=== PATIENT | female | born 1990 | race Caucasian/White ===

== ENCOUNTER 2018-08-13 23:45 | Emergency (ER) | payer OTHER ==
[2018-08-13 23:56] VITALS: BP 110/66
[2018-08-14] MEDS ORDERED: HYDROcod/ACETAM 5/325 MG TABLET PO STA (00:12)
[2018-08-14] MEDS ORDERED: NITROFURANTOIN MACRO 100 MG CAPSULE PO STA (00:12)
[2018-08-14] MEDS ORDERED: PHENAZOPYRIDINE 100 MG TABLET PO STA (00:12)
--- NOTE | 2018-08-14 00:16 | ED Physician Documentation ---
PD HPI FEMALE - Stated complaint Stated Complaint: L SIDE PAIN - Chief complaint Chief Complaint: Abd Pain - History obtained from History obtained from: Patient, Family - History of Present Illness Timing - onset: Today Timing - duration: Days (1) Timing - details: Gradual onset Pain level max: 8 Pain level max: 8 Associated symptoms: Dysuria, Urinary frequency. No: Vaginal pain, Vaginal bleeding, Vaginal discharge [employer] History: G (3), P (2) Similar symptoms before: Diagnosis (UTI) Recently seen: Not recently seen Review of Systems Constitutional: denies: Fever, Chills GI: denies: Vomiting Skin: denies: Rash Musculoskeletal: denies: Neck pain, Back pain Neurologic: denies: Headache PD PAST MEDICAL HISTORY - Past Medical History Past Medical History: No - Past Surgical History Past Surgical History: No - Present Medications Home Medications: Ambulatory Orders Medication Instructions Recorded Confirmed #103/Iron Fumarate/FA 1 tab PO DAILY 08/13/18 08/13/18 [ Tablet] Nitrofurantoin Monohyd/M-Cryst 100 mg PO BID #10 capsule 08/14/18 [Macrobid 100 mg Capsule] Phenazopyridine HCl [Pyridium] 200 mg PO TID PRN #6 tablet 08/14/18 - Allergies Allergies/Adverse Reactions: Allergies Allergy/AdvReac Type Severity Reaction Status Date / Time No Known Drug Allergies Allergy Verified 08/13/18 23:56 - Social History Does the pt smoke?: No Smoking Status: Never smoker Does the pt drink ETOH?: No Does the pt have substance abuse?: No - Immunizations Immunizations are current?: Yes - POLST Patient has POLST: No PD ED PE NORMAL - Vitals Vital signs reviewed: Yes - General General: Alert and oriented X 3, No acute distress - HEENT HEENT: Moist mucous membranes - Neck Neck: Supple, no meningeal sign - Cardiac Cardiac: RRR - Respiratory Respiratory: No respiratory distress, Clear bilaterally - Abdomen Abdomen: Soft, Non distended, Other (Tender to palpation suprapubic without peritoneal signs) - Back Back: No CVA TTP, No spinal TTP - Derm Derm: Warm and dry, No rash - Neuro Neuro: Alert and oriented X 3 Results - Vitals Vitals: Vital Signs - 24 hr 08/13/18 23:50 Temperature 36.8 C Heart Rate 95 Respiratory 16 Rate Blood Pressure 110/66 O2 Saturation 100 Oxygen O2 Source Room air PD MEDICAL DECISION MAKING - ED course Complexity details: reviewed results, considered differential, d/w patient, d/w family ED course: Patient is a 28-year-old female who is approximately 11 weeks who presents with symptoms of UTI. No vaginal bleeding or discharge. Bedside ultrasound reveals an intrauterine with a heart rate of approximately 152 bpm. Images were shown to the patient and significant other. Will place on antibiotics and follow-up closely with her doctor. Patient counseled regarding signs and symptoms for which I believe and urgent re- evaluation would be necessary. Patient with good understanding of and agreement to plan and is comfortable going home at this time This document was made in part using voice recognition software. While efforts are made to proofread this document, sound alike and grammatical errors may occur. - Sepsis Event Vital Signs: Vital Signs - 24 hr 08/13/18 23:50 Temperature 36.8 C Heart Rate 95 Respiratory 16 Rate Blood Pressure 110/66 O2 Saturation 100 Oxygen O2 Source Room air Departure - Departure Disposition: 01 Home, Self Care Clinical Impression: Urinary tract infection Qualifiers: Urinary tract infection type: acute cystitis Hematuria presence: without hematuria Qualified Code(s): N30.00 - Acute cystitis without hematuria Condition: Good Instructions: ED UTI Cystitis Female Follow-Up: Jordan Manrique ARNP [Primary Care Provider] - Within 1 week Prescriptions: Nitrofurantoin Monohyd/M-Cryst [Macrobid 100 mg Capsule] 100 mg PO BID #10 capsule Phenazopyridine HCl [Pyridium] 200 mg PO TID PRN #6 tablet PRN Reason: dysuria Comments: Take all antibiotics until gone. Return if you worsen. Discharge Date/Time: 08/14/18 00:20
[2018-08-14 00:21] LABS: BILIRUBIN,URINE NEGATIVE (NEGATIVE); GLUCOSE, URINE (UA) NEGATIVE (NEGATIVE); KETONES,URINE (UA) NEGATIVE (NEGATIVE); LEUKOCYTE ESTERASE, URINE LARGE (NEGATIVE); NITRITE,URINE NEGATIVE (NEGATIVE); OCCULT BLOOD,URINE MODERATE (NEGATIVE); PROTEIN,URINE 100 mg/dL (NEGATIVE); UROBILINOGEN,URINE 0.2 (NORMAL) E.U./dL (NORMAL)
[2018-08-14 00:29] LABS: BACTERIA,URINE Few /HPF (None Seen); CLARITY,URINE CLOUDY (CLEAR); SQUAMOUS EPITHELIAL CELL,UR FEW Squamous (<= Few)
== END 2018-08-14 00:20 | disposition home or self-care (01) ==
LOC: ED 23:45
DX: O23.11 Infections of bladder in pregnancy, first trimester (principal); Z3A.11 11 weeks gestation of pregnancy
CPT/HCPCS: 81001; 87086; 99283; A9270; 81003; 87181

== ENCOUNTER 2019-06-19 11:16 | Day surgery (SDC) | payer OTHER ==
[2019-06-19] MEDS ORDERED: LACTATED RINGERS 1,000 ML IV ONE ×2 (11:25→14:09)
[2019-06-19] MEDS ORDERED: BUPIVACAINE 0.5% PF 10 ML VIAL ONE (11:31)
[2019-06-19 11:46] LABS: HCG UR QUAL NEGATIVE
--- NOTE | 2019-06-19 12:12 | ANESTHESIA ---
Pre-Anesthesia VS, & Labs - Diagnosis Desires permanent sterility - Procedure Lap tubal Vital Signs: Temp Pulse Resp BP Pulse Ox 36.2 C L 64 18 97/60 100 06/19/19 11:35 06/19/19 11:35 06/19/19 11:35 06/19/19 11:35 06/19/19 11:35 Height 5 ft Weight (kg) 58.06 kg Body Mass Index 24.0 - NPO >8 hours - Is Patient ?: No - Lab Results Lab results reviewed: Yes Home Medications and Allergies Home Medications: Ambulatory Orders No Known Home Medications 06/10/19 No Known Home Medications 06/10/19 Allergies/Adverse Reactions: Allergies Allergy/AdvReac Type Severity Reaction Status Date / Time No Known Drug Allergies Allergy Verified 06/19/19 11:38 Anes History & Medical History - Anesthetic History Anesthesia Complications: reports: No previous complications Family history of Anesthesia Complications: Denies Family history of Malignant Hyperthermia: Denies - Medical History Cardiovascular: reports: None Pulmonary: reports: None Gastrointestinal: reports: None Urinary: reports: None Neuro: reports: None Musculoskeletal: reports: None Endocrine/Autoimmune: reports: None Blood Disorders: reports: None Skin: reports: None Smoking Status: Never smoker Psychosocial: reports: No issues indicated - Surgical History Gynecologic: Other (Epidural for labor) Exam General: Alert Dental: WNL Mouth Opening: Greater than 4 Fingerbreadths Neck Mobility: Normal Mallampati classification: I Thyromental Distance: greater than 6 cm Respiratory: Lungs clear Cardiovascular: Regular rate Mental/Cognitive Status: Alert/Oriented X3 Cognitive Status: Within normal limits Plan Anesthesia Type: General Consent for Procedure(s) Verified and Reviewed: Yes Code Status: Attempt Resuscitation ASA classification: 1-Healthy patient Is this case an emergency?: No
[2019-06-19] MEDS ORDERED: BUPIVACAINE 0.25% PF 30 ML VIAL SUBQ ONE ×2 (12:53)
[2019-06-19] MEDS ORDERED: ePHEDrine 50 MG/ML VIAL IVP ONE (13:20)
[2019-06-19] MEDS ORDERED: ROCURONIUM 50 MG/5 ML VIAL IVP ONE (13:20)
[2019-06-19] MEDS ORDERED: ONDANSETRON 4 MG/2 ML VIAL IVP ONE (13:20)
[2019-06-19] MEDS ORDERED: fentaNYL 100 MCG/2 ML VIAL IVP ONE (13:20)
[2019-06-19] MEDS ORDERED: NEOSTIGMINE 1 MG/1 ML 10 ML MDV IVP ONE (13:20)
[2019-06-19] MEDS ORDERED: DEXAMETHASONE 4 MG/ML VIAL IVP ONE (13:20)
[2019-06-19] MEDS ORDERED: PROPOFOL 200 MG/20 ML VIAL IVP ONE (13:20)
[2019-06-19] MEDS ORDERED: GLYCOPYRROLATE 1 MG/5 ML VIAL IVP ONE (13:20)
[2019-06-19] MEDS ORDERED: MIDAZOLAM 2 MG/2 ML VIAL IVP ONE (13:20)
[2019-06-19] MEDS ORDERED: LIDOCAINE-MPF 2% 5 ML VIAL IM ONE (13:20)
[2019-06-19] MEDS ORDERED: HYDROcod/ACETAM 10 MG/325 MG TABLET PO PRN (13:41)
--- NOTE | 2019-06-19 13:45 | OPERATIVE REPORT ---
Operative Report - General Procedure Date: 06/19/19 Planned Procedure: Laparoscopic bilateral salpingectomies Pre-Op Diagnosis: Undesired fertility Procedure Performed: Same as above Post Op Diagnosis: Same as above - Procedure Note Primary Surgeon: Duyen Secondary Surgeon: Lucina Anesthesia Provider: Kevin Anesthesia Technique: General ET tube, General mask Pathology: Portions of both fallopian tubes Estimated Blood Loss (mL): 50 Indications: Undesired fertility Findings: Exam under anesthesia The uterus was of normal size, shape, and consistency and retroverted. The adnexa were benign. Operative findings The uterus appeared normal. The tubes and ovaries appeared normal. The anterior and posterior cul-de-sacs were unremarkable. - Other Other Information/Narrative: Procedure: The patient was taken to the operating room, where general endotracheal anesthesia was administered without difficulty. She was then positioned in the low dorsal lithotomy position with her lower extremities in [place] Fin stirrups. Vagina, perineum, and abdomen were then prepped and draped in a sterile fashion. Procedure Time-Out was then performed. A sterile bivalve speculum was then inserted into the vagina. A tenaculum was placed at the anterior lip of the cervix, then the cervix was serially dilated until a HUMI uterine manipulator could be gently advanced and the balloon inflated. The tenaculum and speculum were then removed from the vagina. Attention was then turned to the laparoscopy. 0.5% Marcaine was injected infraumbilically, then a 7-mm horizontal skin incision made. A Verres needle was then inserted through the anterior layers of the abdominal wall with saline drop test suggesting intraperitoneal placement. Carbon dioxide gas insufflation was then performed with appropriate opening pressures noted. Once 2 L of gas was instilled, a 0-degree, 5 mm laparoscope was inserted into a 5 mm trocar and passed through the anterior layers of the abdominal wall using Optiview technique. The abdomen was visualized, then 2 additional ports placed at the right and left lower quadrants, first instilling local anesthetic, then placing 5 mm ports. The patient was placed into Trendelenberg and bowel swept out of the cul-de-sac. The right, distal fallopian tube was then grasped and pulled anteriorly and superiorly. The tubo-ovarian ligament was then crossclamped, cauterized, and cut using the PlasmaKinetic, then the mesosalpinx was crossclamped, cauterized, and cut, completely the right fallopian tube from the uterus at the cornual region. Bleeding was encountered at the meso-ovarian junction and that was cauterized with the Plasma Kinetic. The right fallopian tube was then removed from the abdomen. The left distal fallopian tube was then grasped and pulled anteriorly and superiorly. The tubo-ovarian pedicle was then crossclamped, cauterized, and cut, the distal left fallopian tube from the left ovary. The mesosalpinx was then serially cauterized and cut until the cornual region was reached, then the cornual fallopian tube was crossclamped cauterized and cut. The surgical sites appeared hemostatic. The left fallopian tube was removed from the abdomen. At this point the laparoscopy was deemed complete, and all trochars were removed from the abdomen. The carbon dioxide gas was then allowed to escape. The incisions were then closed with 4-0 Monocryl in a subcuticular fashion followed by Dermabond skin adhesive. The HUMI manipulator was then removed. At this point the procedure was deemed complete. The patient was then replaced supine, awakened, extubated, and transferred to the PACU in stable condition.
[2019-06-19] MEDS ORDERED: fentaNYL 100 MCG/2 ML VIAL ONE (14:14)
[2019-06-19 15:45] VITALS: BP 98/59
== END 2019-06-19 11:17 | disposition home or self-care (01) ==
LOC: SDS 11:16
PROVIDERS: ATTEND Obstetrics & Gynecology
PROC: 0UT74ZZ Resection of Bilateral Fallopian Tubes, Percutaneous Endoscopic Approach (ICD-10-PCS; principal; 2019-06-19 12:30)
DX: Z30.2 Encounter for sterilization (principal)
CPT/HCPCS: 58661; 81025; J7120